=== PATIENT | female | born 1975 | race Caucasian/White ===

== ENCOUNTER 2018-07-04 15:29 | Emergency (ER) | payer SELFPAY ==
[2018-07-04 16:00] LABS: ABSOLUTE EOSINOPHILS # (AUTO) 0.1 10^3/uL (0.0-0.6); ABSOLUTE LYMPHOCYTES (AUTO) 1.2 10^3/uL (0.5-4.7); ABSOLUTE MONOCYTES (AUTO) 0.5 10^3/uL (0.1-1.4); ABSOLUTE NEUT (AUTO) 2.9 10^3/uL (1.7-8.2); BASOPHILS % (AUTO) 0.5 % (0-2); EOSINOPHILS % (AUTO) 1.8 % (0-6); HEMATOCRIT 37.4 % (36.0-47.0); HEMOGLOBIN 13.2 g/dL (12.0-15.5); LYMPHOCYTES % (AUTO) 25.6 % (13-45); MEAN CORPUSCULAR HEMOGLOBIN 33.9 pg (27.0-33.4); MEAN CORPUSCULAR HGB CONC 35.2 g/dL (32.0-36.0); MEAN CORPUSCULAR VOLUME 96 fl (80-97); MONOCYTES % (AUTO) 10.3 % (3-13); PLATELET COUNT 221 10^3/uL (150-450); RED BLOOD COUNT 3.89 10^6/uL (3.72-5.28); RED CELL DISTRIBUTION WIDTH 12.6 % (11.5-14.0); SEGMENTED NEUTROPHILS % (AUTO) 61.8 % (42-78); TOTAL CELLS COUNTED % (AUTO) 100 %; WHITE BLOOD COUNT 4.6 10^3/uL (4.0-10.5)
--- NOTE | 2018-07-04 16:00 | PSYCHOLOGICAL NOTE ---
Psych Note - Psych Note Date seen by psych provider: 07/04/18 Time seen by psych provider: 15:50 - ED Doctor informed of patient. Chart review followed. Psych Note: Reason for Consult: Combative, AH, hostile the last few days Contact Permissions: Unknown Patient is a 42 year old female who presented to the ED today via EMS for being hostile the last few days (combative, AH). She allowed EMS to bring her in, fit/place IV and administer Versed 5MG. She presented to the ED asleep, woke up to answer simple questions and went back to sleep. Patient does not have any other visits to the ED, no lab work is available yet and she has been sedated with medication. She will not be discharged this evening. Will complete initial evaluation with her in the morning. Attending ED Physician stated patient was sedated and calm. She told him she has been seeing spots on the friedman for 4-5 years and they say they came from [place]. Contacted [facility] ( ). Spoke to Ruby. She stated the only thing in their system is from 05/22/18 a diagnosis of Schizophrenia from [facility]. Diagnosis: 298.9 (F29) Unspecified Schizophrenia Spectrum and Other Psychotic Disorder by history (per [facility] from [facility] on 05/22/18) Medication recommendations made by the psychiatric medical provider, Dr. Shonda MD., includes: Add Haldol 5MG twice a day for psychosis/agitation Add Cogentin 1MG daily to curb tremor side effects often associated with antipsychotics Impression/Plan: Recommend 24 Hour IVC Petition. Patient will have initial evaluation in the morning. Consulted with Dr. Garcia regarding the management and care of patient. ED Physician in agreement with recommendations.
[2018-07-04 16:15] LABS: APPEARANCE,URINE SLIGHTLY-CLOUDY; BILIRUBIN,URINE NEGATIVE (NEGATIVE); COLOR,URINE YELLOW; GLUCOSE, URINE NEGATIVE (NEGATIVE); KETONES,URINE TRACE mg/dL (NEGATIVE); LEUKOCYTE ESTERASE,URINE NEGATIVE (NEGATIVE); NITRITE,URINE NEGATIVE (NEGATIVE); PROTEIN,URINE NEGATIVE (NEGATIVE); URINE SPECIFIC GRAVITY 1.017; UROBILINOGEN,URINE NEGATIVE mg/dL (<2.0)
[2018-07-04 16:17] LABS: ALANINE AMINOTRANSFERASE 20 U/L (9-52); ALKALINE PHOSPHATASE 59 U/L (38-126); ANION GAP 7 (5-19); ASPARTATE AMINO TRANSFERASE 16 U/L (14-36); BILIRUBIN,DIRECT 0.1 mg/dL (0.0-0.4); BILIRUBIN,TOTAL 0.6 mg/dL (0.2-1.3); BLOOD UREA NITROGEN 11 mg/dL (7-20); CALCIUM 9.3 mg/dL (8.4-10.2); CARBON DIOXIDE 29 mmol/L (22-30); CHLORIDE 104 mmol/L (98-107); GLUCOSE 93 mg/dL (75-110); POTASSIUM 3.5 mmol/L (3.6-5.0); SODIUM 140.2 mmol/L (137-145); TOTAL PROTEIN 6.2 g/dL (6.3-8.2)
[2018-07-04] MEDS ORDERED: NORMAL SALINE 1000 ML 1,000 ML IV ONE (16:17)
[2018-07-04 16:18] LABS: ACETAMINOPHEN < 10 ug/mL (10-30); ALCOHOL < 10 mg/dL (NONE DETECTED); SALICYLATE < 1.0 mg/dL (2.0-20.0)
[2018-07-04 16:37] LABS: URINE BARBITURATES SCREEN NEGATIVE; URINE BENZODIAZEPINES SCREEN UNCONFIRMED POSITIVE; URINE COCAINE SCREEN NEGATIVE; URINE MARIJUANA (THC) SCREEN NEGATIVE; URINE METHADONE SCREEN NEGATIVE; URINE PHENCYCLIDINE SCREEN NEGATIVE
[2018-07-04] MEDS: BENZTROPINE MESYLATE 1 MG TABLET PO SCH (16:50)
[2018-07-04] MEDS: HALOPERIDOL 5 MG TABLET PO SCH (17:28)
[2018-07-04] MEDS ORDERED: DIPHENHYDRAMINE HCL 50 MG/ML VIAL IM ONE (17:51)
[2018-07-04] MEDS ORDERED: LORAZEPAM INJ 2 MG/1 ML VIAL IM ONE (17:51)
[2018-07-04] MEDS ORDERED: HALOPERIDOL LACTATE INJ 5 MG/1 ML VIAL IM ONE (17:51)
--- NOTE | 2018-07-04 22:39 | ER Document Report ---
ED General - General Chief Complaint: Psych Problem Stated Complaint: PSYCH EVAL Time Seen by Provider: 07/04/18 15:44 TRAVEL OUTSIDE OF THE [place] IN LAST 30 DAYS: No - HPI Patient complains to provider of: Psychiatric evaluation Notes: Patient coming in for psychiatric evaluation. Patient was given Versed via EMS because of being combative. Upon my evaluation patient is calm sleeping easily arousable patient states that she is seeing things states that she has been seeing things for approximately 5-6 years states that her hallucinations speak to her and tell her that she is God. Patient states that she is never been on any medications for any psychiatric issues patient also denies any other medical issues such as hypertension diabetes. Patient denies smoking denies illicit drug use denies any alcohol use. Upon my evaluation patient looks to be no obvious distress. - Related Data Allergies/Adverse Reactions: No Known Allergies Allergy (Unverified 07/04/18 15:53) Past Medical History - Social History Smoking Status: Current Every Day Smoker Chew tobacco use (# tins/day): No Frequency of alcohol use: Heavy Drug Abuse: Methamphetamine Family History: Reviewed & Not Pertinent Patient has suicidal ideation: No Patient has homicidal ideation: No Renal/ Medical History: Denies: Hx Peritoneal Dialysis GI Medical History: Reports: Hx Ulcer Skin Medical History: Comment Only Hx MRSA - MRSA 01/16 [facility] Psychiatric Medical History: Reports: Hx Bipolar Disorder, Hx Schizophrenia Review of Systems - Review of Systems Constitutional: No symptoms reported EENT: No symptoms reported Cardiovascular: No symptoms reported Respiratory: No symptoms reported Gastrointestinal: No symptoms reported Genitourinary: No symptoms reported Female Genitourinary: No symptoms reported Musculoskeletal: No symptoms reported Skin: No symptoms reported Hematologic/Lymphatic: No symptoms reported Neurological/Psychological: Hallucinations -: Yes All other systems reviewed and negative Physical Exam - Vital signs Vitals: Temp Pulse Resp BP Pulse Ox 98.2 F 75 18 101/67 100 07/04/18 15:55 07/04/18 15:55 07/04/18 15:55 07/04/18 15:55 07/04/18 15:55 Interpretation: Normal - General General appearance: Appears well, Alert - HEENT Head: Normocephalic, Atraumatic Eyes: Normal Pupils: PERRL - Respiratory Respiratory status: No respiratory distress Chest status: Nontender Breath sounds: Normal Chest palpation: Normal - Cardiovascular Rhythm: Regular Heart sounds: Normal auscultation Murmur: No - Abdominal Inspection: Normal Distension: No distension Bowel sounds: Normal Tenderness: Nontender Organomegaly: No organomegaly - Back Back: Normal, Nontender - Extremities General upper extremity: Normal inspection, Nontender, Normal color, Normal ROM, Normal temperature General lower extremity: Normal inspection, Nontender, Normal color, Normal ROM, Normal temperature, Normal weight bearing. No: Agustín's sign - Neurological Neuro grossly intact: Yes Cognition: Normal Orientation: AAOx4 [place] Coma Scale Eye Opening: Spontaneous Eliseo Coma Scale Verbal: Oriented Eliseo Coma Scale Motor: Obeys Commands [place] Coma Scale Total: 15 Speech: Normal Motor strength normal: LUE, RUE, LLE, RLE Sensory: Normal - Psychological Associated symptoms: Visual hallucinations - Skin Skin Temperature: Warm Skin Moisture: Dry Skin Color: Normal Course - Re-evaluation Re-evalutation: 07/04/18 22:38 Laboratory studies showed patient was positive for possible amphetamines. Patient was given Haldol orally. Patient did attempt to elope from the ER however was detained by security staff and redirected back into the ER. Haldol Benadryl Ativan were given IM since that time patient has not required any physical restraints and has been cooperative. Patient is currently awaiting psychiatric evaluation. - Vital Signs Vital signs: Temp Pulse Resp BP Pulse Ox 98.2 F 75 18 101/67 100 07/04/18 15:55 07/04/18 15:55 07/04/18 15:55 07/04/18 15:55 07/04/18 15:55 - Laboratory Result Diagrams: 07/04/18 15:48 07/04/18 15:48 Laboratory results interpreted by me: 07/04/18 07/04/18 07/04/18 15:48 15:48 16:00 MCH 33.9 H Potassium 3.5 L Total Protein 6.2 L Urine Ketones TRACE H Salicylates < 1.0 L Acetaminophen < 10 L Discharge - Discharge Clinical Impression: Visual hallucinations Condition: Good Disposition: PSYCH HOSP/UNIT
[2018-07-05] MEDS: BENZTROPINE MESYLATE 1 MG TABLET PO SCH (09:35)
[2018-07-05] MEDS: HALOPERIDOL 5 MG TABLET PO SCH (09:36)
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
--- NOTE | 2018-07-05 09:47 | ER Document Report ---
Doctor's Note Notes: 07/05/18 09:45 Patient seen and evaluated. She is sitting up in bed calm and cooperative. She is still endorsing hallucinations and delusions of seeing the devil. Patient is not very verbal with me but denies any issues overnight. Plan to make patient full IVC as she is requiring further psychiatric care
--- NOTE | 2018-07-05 10:17 | EKG REPORT ---
SEVERITY:- BORDERLINE ECG - SINUS RHYTHM BORDERLINE T ABNORMALITIES, ANT-LAT LEADS : Confirmed by: Mitali Tatum 05-Jul-2018 10:16:34
--- NOTE | 2018-07-05 12:10 | RADIOLOGY REPORT (SQ) ---
EXAM DESCRIPTION: CT HEAD WITHOUT COMPLETED DATE/TIME: 07/05/2018 11:58 am REASON FOR STUDY: hallucinations COMPARISON: None. TECHNIQUE: Axial images acquired through the brain without intravenous contrast. Images reviewed wi th bone, brain and subdural windows. Additional sagittal and coronal reconstructions were generated. Images stored on PACS. All CT scanners at this facility use dose modulation, iterative reconstruction, and/or weight based d osing when appropriate to reduce radiation dose to as low as reasonably achievable (ALARA). [facility]: Dose Right [facility]: CareDose [facility]: Dose Right [facility]: Teradose 4D [facility]: ABC Live RADIATION DOSE: CT Rad equipment meets quality standard of care and radiation dose reduction techniq ues were employed. CTDIvol: 53.2 mGy. DLP: 991 mGy-cm. mGy. LIMITATIONS: None. FINDINGS: VENTRICLES: Normal size and contour. CEREBRUM: No masses. No hemorrhage. No midline shift. No evidence for acute infarction. Normal gra y/white matter differentiation. No areas of low density in the white matter. CEREBELLUM: No masses. No hemorrhage. No alteration of density. No evidence for acute infarction. EXTRAAXIAL SPACES: No fluid collections. No masses. ORBITS AND GLOBE: No intra- or extraconal masses. Normal contour of globe without masses. CALVARIUM: No fracture. PARANASAL SINUSES: Mild mucosal thickening at the ostiomeatal complex on the right. Remaining parana nataly sinuses are well aerated. SOFT TISSUES: No mass or hematoma. OTHER: No other significant finding. IMPRESSION: No evidence of acute intracranial process. Mild mucosal thickening at the right ostiomeatal complex. EVIDENCE OF ACUTE STROKE: NO. COMMENT: Quality ID # [id number]: Final reports with documentation of one or more dose reduction techniques (e.g., Automated exposure control, adjustment of the mA and/or kV according to patient size, use of iterative reconstruction technique) TECHNICAL DOCUMENTATION: JOB ID: [id number] [employer]- All Rights Reserved Reading location - IP/workstation name: [email or web address]
[2018-07-05] MEDS ORDERED: NORMAL SALINE 1000 ML 1,000 ML IV PRN (12:43)
[2018-07-05 14:21] VITALS: BP 93/52
== END 2018-07-05 14:57 ==
LOC: ER 15:29
DX: R44.1 Visual hallucinations (principal); F13.99 Sedative, hypnotic or anxiolytic use, unspecified with unspecified sedative, hypnotic or anxiolytic-induced disorder; F15.99 Other stimulant use, unspecified with unspecified stimulant-induced disorder; F17.200 Nicotine dependence, unspecified, uncomplicated; Z86.14 Personal history of Methicillin resistant Staphylococcus aureus infection
CPT/HCPCS: 93005; 99285; 96372; 96360; 96361; 36415; 80307 ×4; 85025; 80053; 81001; 70450; 93010; J1200; J1630; J2060; J7030 ×2